=== PATIENT | female | born 2000 | race Caucasian/White ===

== ENCOUNTER 2019-02-16 22:21 | Emergency (ER) | payer OTHER ==
[2019-02-16 23:26] LABS: APPEARANCE,URINE CLOUDY; BILIRUBIN,URINE NEGATIVE (NEGATIVE); COLOR,URINE YELLOW; GLUCOSE, URINE NEGATIVE (NEGATIVE); KETONES,URINE NEGATIVE (NEGATIVE); LEUKOCYTE ESTERASE,URINE NEGATIVE (NEGATIVE); NITRITE,URINE NEGATIVE (NEGATIVE); PROTEIN,URINE NEGATIVE (NEGATIVE); URINE SPECIFIC GRAVITY 1.019
[2019-02-17] MEDS ORDERED: BENZONATATE 100 MG CAPSULE PO ONE ×2 (01:21→01:33)
[2019-02-17] MEDS ORDERED: GUAIFENESIN/D-METHORPHAN (200-20 MG) SYRUP 10 ML PO ONE ×2 (01:24→01:33)
--- NOTE | 2019-02-17 01:28 | ER Document Report ---
Entered by OSKAR LAURA SCRIBE 02/17/19 0123 Acting as scribe for:ELVIA ZUNIGA MD ED General - General Chief Complaint: Vomiting Stated Complaint: VOMITING Time Seen by Provider: 02/17/19 01:10 Mode of Arrival: Ambulatory Information source: Patient Notes: Patient is a 19 year old female, currently 16 weeks presents to the emergency department complaining of cough, rhinorhea and post tussive emesis onset 1 week ago. Patient states she has had excessive coughing that is preventing her from sleeping. She reports trying OTC including cough drops and spray that has not helped her symptoms. Patient is A2. Patient presented to urgent care and was given Tylenol and cetirizine. TRAVEL OUTSIDE OF THE [place] IN LAST 30 DAYS: No - Related Data Allergies/Adverse Reactions: azithromycin [From Zithromax] Allergy (Verified 02/17/19 00:54) Past Medical History - General Information source: Patient - Social History Smoking Status: Never Smoker Frequency of alcohol use: None Drug Abuse: None Family History: Reviewed & Not Pertinent Patient has suicidal ideation: No Patient has homicidal ideation: No Past Surgical History: Reports: Hx Oral Surgery Review of Systems - Review of Systems Constitutional: No symptoms reported EENT: See HPI, Nose congestion Cardiovascular: No symptoms reported Respiratory: See HPI, Cough Gastrointestinal: See HPI, Vomiting - Post tussive Genitourinary: No symptoms reported Female Genitourinary: See HPI, - 16 weeks Musculoskeletal: No symptoms reported Skin: No symptoms reported Hematologic/Lymphatic: No symptoms reported Neurological/Psychological: No symptoms reported -: Yes All other systems reviewed and negative Physical Exam - Notes Notes: GENERAL: Alert, interacts well. No acute distress. HEAD: Normocephalic, atraumatic. EYES: Pupils equal, round, and reactive to light. Extraocular movements intact. ENT: Oral mucosa moist, tongue midline. Nasal congestion. NECK: Full range of motion. Supple. Trachea midline. LUNGS: Frequent dry cough. Clear to auscultation bilaterally, no wheezes, rales, or rhonchi. No respiratory distress. HEART: Regular rate and rhythm. No murmurs, gallops, or rubs. ABDOMEN: Soft, gravid uterus. Non-tender. Non-distended. Bowel sounds present in all 4 quadrants. No guarding, rigidity, or rebound. EXTREMITIES: Moves all 4 extremities spontaneously. No edema, radial and dorsalis pedis pulses 2/4 bilaterally. No cyanosis. NEUROLOGICAL: Alert and oriented x3. Normal speech. PSYCH: Normal affect, normal mood. SKIN: Warm, dry, normal turgor. No rashes or lesions noted. Course - Laboratory Laboratory results interpreted by me: 02/16/19 23:01 Urine Urobilinogen 2.0 H Discharge - Discharge Clinical Impression: Viral upper respiratory tract infection with cough, with 16 completed weeks gestation Condition: Stable Disposition: HOME, SELF-CARE Additional Instructions: Upper Respiratory Illness You have a viral infection of the respiratory passages -- a "cold." This common infection causes nasal congestion, drainage, and often sore throat and cough. It is caused by a virus and is highly contagious. The disease usually lasts a week or more, though the worst symptoms are usually over in 3 or 4 days. There is no "cure" for the viral infection -- it must run its course. If there is a complication, such as bacterial infection in the nose, sinuses, middle ear, or bronchial tubes, antibiotics may be required, but antibiotics won't affect the virus. If you smoke, you should STOP!! Drink plenty of fluids. A humidifier may help. An expectorant medication or decongestant may make you more comfortable. Use acetaminophen or ibuprofen for fever or aches. See the doctor if fever persists over two or three days, if there is any significant worsening of your symptoms, or if you simply fail to improve as expected. Try taking the Tessalon Perles as prescribed for cough. You may add something like Delsym DM to help control the cough. Drink plenty of fluids throughout the day in the evening to stay well-hydrated. Get plenty of sleep and rest. Follow-up with your primary care provider if not improving. RETURN TO THE EMERGENCY ROOM IF ANY NEW OR WORSENING SYMPTOMS. Prescriptions: Benzonatate [Tessalon Perles 100 mg Capsule] 100 mg PO ASDIR PRN #20 capsule PRN Reason: Scribe Attestation: 02/17/19 01:25 I personally performed the services described in the documentation, reviewed and edited the documentation which was dictated to the scribe in my presence, and it accurately records my words and actions. I personally performed the services described in the documentation, reviewed and edited the documentation which was dictated to the scribe in my presence, and it accurately records my words and actions.
[2019-02-17 02:21] VITALS: BP 124/67
== END 2019-02-17 02:22 | disposition home or self-care (01) ==
LOC: ER 22:21
DX: O26.892 Other specified pregnancy related conditions, second trimester (principal); J06.9 Acute upper respiratory infection, unspecified; R05 Cough; Z3A.16 16 weeks gestation of pregnancy; Z88.1 Allergy status to other antibiotic agents
CPT/HCPCS: 99283; 87070; 87880; 81001; J3490

== ENCOUNTER 2020-08-04 03:55 | Emergency (ER) | payer SELFPAY ==
[2020-08-04 05:15] LABS: ABSOLUTE LYMPHOCYTES (AUTO) 1.1 10^3/uL (0.5-4.7); ABSOLUTE MONOCYTES (AUTO) 0.9 10^3/uL (0.1-1.4); ABSOLUTE NEUT (AUTO) 14.9 10^3/uL (1.7-8.2); BASOPHILS % (AUTO) 0.2 % (0-2); EOSINOPHILS % (AUTO) 0.3 % (0-6); HEMATOCRIT 40.4 % (36.0-47.0); HEMOGLOBIN 14.2 g/dL (12.0-15.5); LYMPHOCYTES % (AUTO) 6.7 % (13-45); MEAN CORPUSCULAR HEMOGLOBIN 30.7 pg (27.0-33.4); MEAN CORPUSCULAR HGB CONC 35.2 g/dL (32.0-36.0); MEAN CORPUSCULAR VOLUME 87 fl (80-97); MONOCYTES % (AUTO) 5.4 % (3-13); PLATELET COUNT 236 10^3/uL (150-450); RED BLOOD COUNT 4.63 10^6/uL (3.72-5.28); SEGMENTED NEUTROPHILS % (AUTO) 87.4 % (42-78); TOTAL CELLS COUNTED % (AUTO) 100 %
[2020-08-04 05:29] LABS: APPEARANCE,URINE CLEAR; BILIRUBIN,URINE NEGATIVE (NEGATIVE); COLOR,URINE STRAW; GLUCOSE, URINE NEGATIVE (NEGATIVE); KETONES,URINE NEGATIVE (NEGATIVE); LEUKOCYTE ESTERASE,URINE NEGATIVE (NEGATIVE); NITRITE,URINE NEGATIVE (NEGATIVE); PROTEIN,URINE NEGATIVE (NEGATIVE); URINE SPECIFIC GRAVITY 1.008; UROBILINOGEN,URINE NEGATIVE mg/dL (<2.0)
[2020-08-04 05:32] LABS: ALBUMIN 4.6 g/dL (3.5-5.0); ALKALINE PHOSPHATASE 60 U/L (38-126); ANION GAP 11 (5-19); ASPARTATE AMINO TRANSFERASE 14 U/L (14-36); BILIRUBIN,DIRECT 0.1 mg/dL (0.0-0.4); BILIRUBIN,TOTAL 0.7 mg/dL (0.2-1.3); BLOOD UREA NITROGEN 12 mg/dL (7-20); CALCIUM 9.9 mg/dL (8.4-10.2); CARBON DIOXIDE 23 mmol/L (22-30); CHLORIDE 104 mmol/L (98-107); GLUCOSE 123 mg/dL (75-110); POTASSIUM 4.5 mmol/L (3.6-5.0); TOTAL PROTEIN 7.2 g/dL (6.3-8.2)
[2020-08-04] MEDS ORDERED: NORMAL SALINE 1000 ML 1,000 ML IV ONE (06:51)
[2020-08-04] MEDS ORDERED: ONDANSETRON HCL INJ/PF 4 MG/2 ML SDV IV ONE (06:56)
[2020-08-04] MEDS: MORPHINE SULFATE 10 MG/ML INJ IV ONE ×2 (08:13→08:19)
[2020-08-04] MEDS ORDERED: LORAZEPAM INJ 2 MG/1 ML VIAL IV ONE (08:19)
--- NOTE | 2020-08-04 10:06 | RADIOLOGY REPORT (SQ) ---
EXAM DESCRIPTION: CT ABD/PELVIS WITH IV ORAL IMAGES COMPLETED DATE/TIME: 08/04/2020 9:50 am REASON FOR STUDY: abd pain/rectal bleeding COMPARISON: None. TECHNIQUE: CT scan of the abdomen and pelvis performed using helical scanning technique with dynamic intravenous contrast injection. No oral contrast. Images reviewed with lung, soft tissue, and bone windows. Reconstructed coronal and sagittal MPR images reviewed. Delayed images for evaluation of the urinary system also acquired. All images stored on PACS. All CT scanners at this facility use dose modulation, iterative reconstruction, and/or weight based d osing when appropriate to reduce radiation dose to as low as reasonably achievable (ALARA). [facility]: Dose Right [facility]: CareDose [facility]: Dose Right [facility]: Teradose 4D [facility]: Twitmusic CONTRAST TYPE AND DOSE: contrast/concentration: Isovue 350.00 mmol/ml; Total Contrast Delivered: 65. 0 ml; Total Saline Delivered: 55.6 ml RENAL FUNCTION: BUN 12, creatinine 0.6 RADIATION DOSE: CT Rad equipment meets quality standard of care and radiation dose reduction techniq ues were employed. CTDIvol: 5.2 - 6.4 mGy. DLP: 604 mGy-cm.. LIMITATIONS: None. FINDINGS: LOWER CHEST: No significant findings. No nodules or infiltrates. LIVER: Normal size. No masses. No dilated ducts. SPLEEN: Normal size. No focal lesions. PANCREAS: No masses. No significant calcifications. No adjacent inflammation or peripancreatic fluid collections. Pancreatic duct not dilated. GALLBLADDER: No identified stones by CT criteria. No inflammatory changes to suggest cholecystitis. ADRENAL GLANDS: No significant masses or asymmetry. RIGHT KIDNEY AND URETER: No solid masses. No significant calcifications. No hydronephrosis or hyd roureter. LEFT KIDNEY AND URETER: No solid masses. No significant calcifications. No hydronephrosis or hydr oureter. AORTA AND VESSELS: No aneurysm. No dissection. Renal arteries, SMA, celiac without stenosis. RETROPERITONEUM: No retroperitoneal adenopathy, hemorrhage or masses. BOWEL AND PERITONEAL CAVITY: No masses or inflammatory changes. No free fluid or peritoneal masses. APPENDIX: Normal. PELVIS: No mass. No free fluid. Normal bladder. ABDOMINAL WALL: No masses. No hernias. BONES: No significant or acute findings. OTHER: No other significant finding. IMPRESSION: NO SIGNIFICANT OR ACUTE FINDING IN THE ABDOMEN OR PELVIS ON CT SCAN WITH IV CONTRAST. TECHNICAL DOCUMENTATION: JOB ID: [id number] Quality ID # [id number]: Final reports with documentation of one or more dose reduction techniques (e.g., Au tomated exposure control, adjustment of the mA and/or kV according to patient size, use of iterative reconstruction technique) 2010 [employer]- All Rights Reserved Reading location - IP/workstation name: [email or web address]
--- NOTE | 2020-08-04 10:36 | ER Document Report ---
Entered by LINDSEY MUNOZ SCRIBE 08/04/20 0626 Acting as scribe for:VIVIAN BOONE MD ED GI/ - General Chief Complaint: Abdominal Pain Stated Complaint: ABDOMINAL PAIN,VOMITING,DIARRHEA Time Seen by Provider: 08/04/20 06:10 Mode of Arrival: Medic Information source: Patient Notes: This 20 year old female patient presents to the ED today via EMS for evaluation after waking up with bilateral lower abdominal pain and diarrhea at 0130 this morning. Patient reports that she has had diarrhea off and on for about x1 year ever since she gave , but states that she has never sought out medical treatment in the past because it wasn't as severe as it was this morning. She also notes nausea, vomiting, and bright red blood in her stool which was brown and watery in appearance. LMP was on 07/07. She received 4 mg Zofran ODT via EMS. Denies fever. TRAVEL OUTSIDE OF THE [place] IN LAST 30 DAYS: No - Related Data Allergies/Adverse Reactions: azithromycin [From Zithromax] Allergy (Verified 08/04/20 08:10) Past Medical History - General Information source: Patient - Social History Smoking Status: Never Smoker Cigarette use (# per day): No Chew tobacco use (# tins/day): No Smoking Education Provided: No Lives with: Family Family History: Reviewed & Not Pertinent Patient has suicidal ideation: No Patient has homicidal ideation: No Psychiatric Medical History: Reports: Hx Anxiety Past Surgical History: Reports: Hx Oral Surgery Review of Systems - Review of Systems Constitutional: See HPI. denies: Fever EENT: No symptoms reported Cardiovascular: No symptoms reported Respiratory: No symptoms reported Gastrointestinal: See HPI, Abdominal pain, Diarrhea, Nausea, Vomiting, Blood streaked bowels Genitourinary: No symptoms reported Female Genitourinary: See HPI, Last menstrual period - 07/07/2020 Musculoskeletal: No symptoms reported Skin: No symptoms reported Hematologic/Lymphatic: No symptoms reported Neurological/Psychological: No symptoms reported -: Yes All other systems reviewed and negative Physical Exam - Vital signs Vitals: Temp Pulse Resp BP Pulse Ox 97.2 F 99 16 117/77 97 08/04/20 04:04 08/04/20 04:04 08/04/20 04:04 08/04/20 04:04 08/04/20 04:04 Interpretation: Normal - General General appearance: Alert, Anxious In distress: None - HEENT Head: Normocephalic, Atraumatic Eyes: Normal Pupils: PERRL - Respiratory Respiratory status: No respiratory distress Chest status: Nontender Breath sounds: Normal Chest palpation: Normal - Cardiovascular Rhythm: Regular Heart sounds: Normal auscultation Murmur: No Friction rub: No Gallop: None auscultated - Abdominal Inspection: Normal Distension: No distension Bowel sounds: Normal Tenderness: Tender - Very mild bilateral lower quadrant tenderness to palpation, LLQ worse than RLQ. No: Rebound Organomegaly: No organomegaly - Back Back: Normal, Nontender. No: CVA tenderness - Extremities General upper extremity: Normal inspection General lower extremity: Normal inspection. No: Edema - Neurological Neuro grossly intact: Yes Orientation: AAOx4 [place] Coma Scale Eye Opening: Spontaneous [place] Coma Scale Verbal: Oriented [place] Coma Scale Motor: Obeys Commands [place] Coma Scale Total: 15 - Psychological Associated symptoms: Anxious - Skin Skin Temperature: Warm Skin Moisture: Dry Skin Color: Normal Course - Re-evaluation Re-evalutation: 08/04/20 10:30 Patient resting comfortably at this time patient not having any discomfort about her abdomen at this time. 08/04/20 10:33 Discussed with patient regarding doing a rectal exam by nurse and patient refused to have a rectal exam done. - Vital Signs Vital signs: Temp Pulse Resp BP Pulse Ox 97.2 F 99 16 117/77 97 08/04/20 04:04 08/04/20 04:04 08/04/20 04:04 08/04/20 04:04 08/04/20 04:04 08/04/20 10:31 Vital signs stable - Laboratory Result Diagrams: 08/04/20 04:50 08/04/20 04:50 Laboratory results interpreted by me: 08/04/20 08/04/20 04:50 04:50 WBC 17.0 H Lymph % (Auto) 6.7 L Absolute Neuts (auto) 14.9 H Seg Neutrophils % 87.4 H Glucose 123 H 08/04/20 10:31 Glucose 123 white blood cell 17,000. Most likely patient has some demargination with elevated white blood cell count because patient has had intractable nausea vomiting and diarrhea multiple times this morning. Patient also noted some bright red blood per rectum with the continuance of diarrhea. - Diagnostic Test Radiology reviewed: Image reviewed, Reports reviewed Radiology results interpreted by me: 08/04/20 10:32 Abdomen/Pelvis CT 08/04/20 00:00 IMPRESSION: NO SIGNIFICANT OR ACUTE FINDING IN THE ABDOMEN OR PELVIS ON CT SCAN WITH IV CONTRAST. CT abdomen and pelvis with oral and IV contrast showed no significant or acute findings in the abdomen or pelvis. Normal appendix no inflammatory changes noted no obstruction. Discharge - Discharge Clinical Impression: Viral gastroenteritis Condition: Stable Disposition: HOME, SELF-CARE Instructions: Antinausea Medication ([facility]), Antispasmodics ([facility]), Gastroenteritis (adult) ([facility]) Prescriptions: Dicyclomine HCl [Bentyl 10 mg Capsule] 1 cap PO TID PRN #30 cap PRN Reason: Abdominal Cramping Ondansetron [Zofran Odt 4 mg Tablet] 1 - 2 tab PO Q4H PRN #15 tab.rapdis PRN Reason: For Nausea/Vomiting I personally performed the services described in the documentation, reviewed and edited the documentation which was dictated to the scribe in my presence, and it accurately records my words and actions.
[2020-08-04 10:52] VITALS: BP 113/72
== END 2020-08-04 10:52 | disposition home or self-care (01) ==
LOC: ER 03:55
DX: A08.4 Viral intestinal infection, unspecified (principal); R10.30 Lower abdominal pain, unspecified; Z88.3 Allergy status to other anti-infective agents
CPT/HCPCS: 99285; 96361; 96374; 96375; 36415; 83605; 83690; 84703; 85025; 81025; 80053; 81001; 74177; J2060; J2405; J7030; J2270